=== PATIENT | female | born 1970 | race African-American/Black ===

== ENCOUNTER 2017-08-27 12:24 | Emergency (ER) | payer SELFPAY ==
[2017-08-27 13:31] LABS: BILIRUBIN,URINE NEGATIVE (NEG); CLARITY,URINE CLOUDY; COLOR,URINE YELLOW; GLUCOSE,URINE NEGATIVE (NEG); NITRITE,URINE NEGATIVE (NEG); PROTEIN,URINE >=300 mg/dL (NEG-TRACE); UROBILINOGEN,URINE 0.2 mg/dL (0.2 mg/dL)
[2017-08-27 13:37] LABS: SQUAMOUS EPITHELIAL CELL,UR MOD /LPF
[2017-08-27 13:39] LABS: BACTERIA,URINE FEW /HPF (0-FEW); RBC,URINE >40 /HPF (0-2); WBC,URINE OCC /HPF (0-4)
[2017-08-27] MEDS ORDERED: CONTRAST GIVEN MC (14:00)
[2017-08-27] MEDS: IOHEXOL 300 MG/ML 100ML VIAL. IV (14:00)
[2017-08-27 14:04] LABS: ADD MAN DIFF? NO
[2017-08-27 14:08] LABS: BASO # 0.1 x10^3/uL (0.0-0.2); BASO % 1 % (0-3); EOS % 0 % (0-3); HEMATOCRIT 40.6 % (36.0-47.0); HEMOGLOBIN 13.9 g/dL (12.0-15.5); LYMPH # 2.3 x10^3/uL (1.0-4.8); LYMPH % 18 % (24-48); MEAN CORPUSCULAR HEMOGLOBIN 30 pg (25-35); MEAN CORPUSCULAR HGB CONC 34 g/dL (31-37); MEAN CORPUSCULAR VOLUME 87 fL (79-100); MONO # 0.6 x10^3/uL (0.0-1.1); MONO % 5 % (0-9); NEUT # 9.6 x10^3uL (1.8-7.7); NEUT % 76 % (31-73); PLATELET COUNT 331 x10^3/uL (140-400); RED BLOOD COUNT 4.69 x10^6/uL (3.50-5.40); RED CELL DISTRIBUTION WIDTH 14.6 % (11.5-14.5); WHITE BLOOD COUNT 12.6 x10^3/uL (4.0-11.0)
[2017-08-27] MEDS: ONDANSETRON PF 4 MG/2 ML VIAL. IV (14:11)
[2017-08-27] MEDS: MORPHINE SULFATE 4 MG/ML DISP.SYRIN. IV/SQ (14:13)
[2017-08-27 14:17] LABS: ANION GAP 10 (6-14); BLOOD UREA NITROGEN 16 mg/dL (7-20); CARBON DIOXIDE 27 mmol/L (21-32); CHLORIDE 102 mmol/L (98-107); GFR 71.6; GLUCOSE 138 mg/dL (70-99); POTASSIUM 3.9 mmol/L (3.5-5.1); SODIUM 139 mmol/L (136-145)
[2017-08-27 14:18] LABS: PARTIAL THROMBOPLASTIN TIME 28 SEC (24-38); PROTHROMBIN TIME PATIENT 12.8 SEC (11.7-14.0)
[2017-08-27] MEDS: IV NORMAL SALINE 1000ML BAG 1,000 ML IV (14:21)
[2017-08-27 14:28] LABS: ALBUMIN 3.6 g/dL (3.4-5.0); ALK PHOS 137 U/L (46-116); ALT (SGPT) 38 U/L (14-59); AST (SGOT) 21 U/L (15-37); DIRECT BILIRUBIN 0.1 mg/dL (0.0-0.2); LIPASE 317 U/L (73-393); TOTAL BILIRUBIN 0.3 mg/dL (0.2-1.0); TOTAL PROTEIN 8.7 g/dL (6.4-8.2)
[2017-08-27 14:31] LABS: CKMB INDEX 1.1 % (0-4); CKMB MASS 0.7 ng/mL (0.0-3.6); CREATINE KINASE 61 U/L (26-192)
[2017-08-27] MEDS: CIPROFLOXACIN HCL 250 MG TABLET. PO (15:59)
[2017-08-27] MEDS: metroNIDAZOLE 500 MG TABLET PO (15:59)
== END 2017-08-27 16:23 | disposition home or self-care (01) ==
LOC: ER 12:24
DX: K52.9 Noninfective gastroenteritis and colitis, unspecified (principal); R31.9 Hematuria, unspecified; E11.9 Type 2 diabetes mellitus without complications; E78.00 Pure hypercholesterolemia, unspecified; I10 Essential (primary) hypertension; F12.10 Cannabis abuse, uncomplicated; Z90.710 Acquired absence of both cervix and uterus; Z88.0 Allergy status to penicillin
CPT/HCPCS: 36415; 74177; 80048; 80076; 81001; 82553; 83690; 85025; 85610; 85730; 96361; 96374; 96375; 96376; 99285-25; J2270; J2405; J7030; Q9967

== ENCOUNTER → 2019-12-12 | Outpatient (CLI) | payer OTHER ==
[2017-08-27 14:15] VITALS: BP 165/86
[~2019-12-12] MED LIST: CIPR250T30 PO; CONTRAST GIVEN. MC PRN; HYDR-3164 PO; IOHEXOL 240 MG/ML 50ML VIAL. PO ONE; IOHEXOL 300 MG/ML 100ML VIAL. IV ONE; METR500T PO; ONDA4TAB10 SL
--- NOTE | 2019-12-12 15:08 | RAD ---
CT abdomen and pelvis with contrast History: Left flank pain, hematochezia Technique: After the administration of intravenous contrast, CT imaging was performed of the abdomen and pelvis. Oral contrast was also given. Multiplanar images are reviewed. Exposure: One or more of the following individualized dose reduction techniques were utilized for this examination: 1. Automated exposure control 2. Adjustment of the mA and/or kV according to patient size 3. Use of iterative reconstruction technique. Comparison: 08/27/2017 Findings: There are some small nodules of the visualized right lower lobe the lung not convincingly changed, largest about 3 to 4 mm, lungs not fully evaluated. There is no new significant abnormality of the liver, spleen, pancreas, adrenal glands. Mild fullness of the left adrenal gland is unchanged. There are some hepatic and splenic granulomas. Both kidneys enhance without hydronephrosis. There is again hypodense lesion of the mid to severe left kidney about 1.1 cm, density measurements suggestive of cyst 19 Hounsfield units. There are couple of other smaller hypodense foci of the mid to inferior left kidney also fairly similar, too small to further accurately characterize. Gallbladder is present without obvious intraluminal abnormality by CT. Accurate evaluation of bowel is limited without oral contrast. There is no significant inflammatory change adjacent to the bowel. There is no evidence of bowel obstruction, free fluid, or free air. Normal appendix is visualized. There is again mild colonic diverticulosis greatest of the sigmoid colon. There is mild wall prominence of the sigmoid colon greatest of proximal to mid segments and also minimally of the descending colon. However there is no significant adjacent inflammatory-type change. Impression: 1. There is some mild prominence of segments of the descending and sigmoid colon which could be seen with mild colitis in the appropriate clinical setting although no adjacent inflammatory-type change. There is again mild colonic diverticulosis. Otherwise no acute abnormality is identified. 2. There is again superior left renal cyst, also couple of other smaller hypodense foci of the left kidney as seen previously. Electronically signed by: Escobar Ojeda MD (12/12/2019 3:05 PM) [id number]
== END | disposition home or self-care (01) ==
LOC: CT 12:49
PROVIDERS: ATTEND Family Medicine
DX: K57.30 Diverticulosis of large intestine without perforation or abscess without bleeding (principal); N28.1 Cyst of kidney, acquired; R91.8 Other nonspecific abnormal finding of lung field; K75.3 Granulomatous hepatitis, not elsewhere classified
CPT/HCPCS: 74177; Q9967